=== PATIENT | male | born 1970 | race Hispanic/Latino ===

== ENCOUNTER → 2018-04-11 | Outpatient (CLI) | payer BC ==
--- NOTE | 2018-04-11 14:27 | Diagnostic Imaging Report ---
Thyroid ultrasound History: Hyperparathyroidism. Comparison: None Findings: The thyroid echotexture is normal. Vascularity is normal. The right lobe measures 4.4 x 1.3 x 1.6 cm. The left lobe measures 4.0 x 1.5 x 1.7 cm. The isthmus measures 0.5 cm. Nodules (measurements are AP, transverse, craniocaudal): Right Lobe: No cystic mass or discrete solid nodule identified. Left Lobe: There is a 1.9 x 1.5 x 1.2 cm solid, hypoechoic nodule at the posterior aspect of the inferior pole. There are well-circumscribed margins. There are punctate hyperechoic foci. Doppler flow is demonstrated. It is unclear if this arises from the thyroid gland or is extrinsic to the thyroid gland in this patient with hyperparathyroidism. Isthmus: No cystic mass or discrete solid nodule identified. Lymph Nodes: No cervical lymph nodes are identified. IMPRESSION: There is a 1.9 x 1.5 x 1.2 cm solid nodule at the posterior aspect of the inferior pole thyroid. It is unclear if this arises from the thyroid gland or is extrinsic to the thyroid gland in this patient with hyperparathyroidism. Note is made that the patient is receiving nuclear medicine SPECT study on the same day which can clarify the origin of the nodule. If the nodule is suspected to be of thyroid origin, then it is suspicious (TR5) and FNA is recommended. ACR glossary of thyroid rads TI-RADS 1: No focal lesion. TI-RADS 2: Not suspicious. TI-RADS 3: Mildly suspicious (recommend FNA is greater than or equal to 2.5 cm; follow-up at 1, 3, and 5 years if greater than or equal to 1.5 cm) TI-RADS 4: Moderately Suspicious (recommend FNA is greater than or equal to 1.5 cm; follow-up at 1, 2, 3, and 5 years) TI-RADS 5: Highly suspicious (recommend FNA is greater than or equal to 10 mm) TI-RADS 6: Biopsy-proven malignancy Signed by: Dr. William Bustamante MD on 04/11/2018 2:23 PM
--- NOTE | 2018-04-11 17:30 | Diagnostic Imaging Report ---
Parathyroid Scan with SPECT Reason for exam: Hyperparathyroidism Radiopharmaceutical: Tc-99m sestamibi 27.5 mCi After intravenous administration of the radiopharmaceutical, immediate and 2-hour planar images of the neck and upper chest were obtained. Tomographic images of the neck and upper chest were obtained following the initial planar images. A focus of increased tracer is seen immediately lateral and inferior to the lower pole of the left thyroid lobe on the initial planar and tomographic images. The focus persists on the delayed planar images. No other focal abnormalities are identified. Impression: Single enlarged hypermetabolic parathyroid gland is identified immediately inferior and slightly lateral to the inferior pole of the left thyroid lobe. Signed by: Dr. Pam Ch M.D. on 04/11/2018 5:27 PM
== END ==
LOC: US 12:53
PROVIDERS: ATTEND Family Medicine
DX: E21.3 Hyperparathyroidism, unspecified (principal)
CPT/HCPCS: 76536; 78071; A9500